=== PATIENT | male | born 1980 | race Two or more races ===

== ENCOUNTER 2025-01-02 23:32 | Emergency (ER) | payer OTHER ==
[~2025-01-02] VITALS: Ht 180.3 cm; Wt 113.4 kg
[2025-01-02] MEDS ORDERED: DEPAKOTE ER500 MG PO (23:47)
[2025-01-02] MEDS ORDERED: KEPPRA750 MG (23:47)
[2025-01-02] MEDS ORDERED: TRILEPTAL300 MG PO (23:48)
[2025-01-02] MEDS ORDERED: TOPROL XL100 M1 (23:49)
[2025-01-02] MEDS ORDERED: HYDROCHLOROTHIA25 MG PO (23:49)
[2025-01-03] MEDS ORDERED: LevETIRAcetam 500 MG/5 ML VIAL IV STA (01:11)
[2025-01-03] MEDS ORDERED: LevETIRAcetam 500 MG/5 ML VIAL IV ONE (01:18)
== END 2025-01-03 04:06 | disposition home or self-care (01) ==
LOC: ER 23:32
DX: G40.909 Epilepsy, unspecified, not intractable, without status epilepticus (principal)